=== PATIENT | female | born 1970 | race Caucasian/White ===

== ENCOUNTER 2019-11-08 11:25 | Emergency (ER) | payer MEDICAID ==
[~2019-11-08] VITALS: Ht 165.1 cm; Wt 64.9 kg
[2019-11-08 11:25] VITALS: BP_SYST 121
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
--- NOTE | 2019-11-08 11:55 | NUR ---
BROUGHT BACK TO BED #7 AND REPORT GIVEN TO AIDAN
--- NOTE | 2019-11-08 12:00 | NUR ---
OFFICER COLBY AT BEDSIDE TO SPEAK WITH PT.
--- NOTE | 2019-11-08 12:23 | NUR ---
DR MAHAN AT BEDSIDE FOR EVALUATION
[2019-11-08] MEDS ORDERED: KETOROLAC TROMETHAMINE 60 MG/2 ML VIAL IM ONE (12:30)
--- NOTE | 2019-11-08 13:00 | NUR ---
Medicated for pain per MD orders. Pt tolerated well, no adverse reaction
[2019-11-08 13:10] VITALS: BP_SYST 117
--- NOTE | 2019-11-08 13:14 | NUR ---
PATIENT DECLINED NURSING ASSESSMENT; PREPARATIONS TO DISCHARGE PER ERMD; ACI GIVEN AND PATIENT INDICATED FULL UNDERSTANDING; DISCHARGED AMBULATORY, IMPROVED
--- NOTE | 2019-11-08 13:17 | NUR ---
TORADOL INJECTION ADMINISTERED BY ER DIRECTOR
== END 2019-11-08 13:14 | disposition home or self-care (01) ==
LOC: SED 11:25 → EEVIPCON 11:25 → SED 13:14
DX: S13.4XXA Sprain of ligaments of cervical spine, initial encounter (principal); F17.290 Nicotine dependence, other tobacco product, uncomplicated; Y04.0XXA Assault by unarmed brawl or fight, initial encounter; Y93.89 Activity, other specified; Y92.89 Other specified places as the place of occurrence of the external cause; Y99.8 Other external cause status
CPT/HCPCS: 72040; 96372; 99283; J1885

== ENCOUNTER 2020-06-10 21:20 | Emergency (ER) | payer MEDICAID ==
[~2020-06-10] VITALS: Ht 165.1 cm; Wt 61.2 kg
[2020-06-10 21:22] VITALS: BP_SYST 122
[2020-06-10] MEDS ORDERED: ASPIRIN 81 MG TAB.CHEW PO ONE (21:45)
[2020-06-10] MEDS ORDERED: LORazepam 1 MG TABLET PO ONE (22:00)
[2020-06-10 22:15] LABS: BASOPHILS % (AUTO) 0.5 % (0.0-2.0); EOSINOPHILS % (AUTO) 0.9 % (0.0-4.0); HEMATOCRIT 35.4 % (36-48); HEMOGLOBIN 11.4 g/dL (12.0-16.0); LYMPHOCYTES # (AUTO) 1.5 K/uL (1.0-5.5); LYMPHOCYTES % (AUTO) 27.2 % (20.5-51.5); MEAN CORPUSCULAR HEMOGLOBIN 26 pg (27-31); MEAN CORPUSCULAR HGB CONC 32 % (32-36); MEAN CORPUSCULAR VOLUME 81 fL (79.0-98.0); MONOCYTES # (AUTO) 0.4 K/uL (0.0-1.0); MONOCYTES % (AUTO) 8.3 % (1.7-9.3); NEUTROPHILS # (AUTO) 3.4 K/uL (1.8-7.7); NEUTROPHILS % (AUTO) 63.1 % (40.0-70.0); PLATELET COUNT (AUTO) 195 K/uL (130-430); RED BLOOD CELL COUNT(AUTO) 4.37 MIL/uL (4.2-6.2); RED CELL DISTRIBUTION WIDTH 14.9 % (9.0-15.0); WHITE BLOOD COUNT (AUTO) 5.4 K/uL (4.8-10.8)
[2020-06-10 22:35] LABS: CALCIUM 8.9 mg/dL (8.4-11.0); CREATININE 0.71 mg/dL (0.55-1.30); POTASSIUM 3.3 mmol/L (3.5-5.1)
[2020-06-10 22:39] LABS: ALBUMIN 3.3 g/dL (3.4-4.8); TOTAL BILIRUBIN 0.3 mg/dL (0.0-1.0)
[2020-06-10] MEDS ORDERED: KETOROLAC TROMETHAMINE 60 MG/2 ML VIAL IM ONE (23:30)
[2020-06-10] MEDS ORDERED: ACETAMINOPHEN 500 MG TABLET PO ONE (23:30)
[2020-06-11] MEDS ORDERED: POTASSIUM CHLORIDE 20 MEQ TAB.PRT.SR PO ONE (01:30)
[2020-06-11 01:33] VITALS: BP_SYST 122
== END 2020-06-11 01:33 | disposition home or self-care (01) ==
LOC: SED 21:20
DX: R07.89 Other chest pain (principal); J45.909 Unspecified asthma, uncomplicated; E07.9 Disorder of thyroid, unspecified
CPT/HCPCS: 36415; 71045; 80053; 82550; 83880; 84484; 85025; 85379; 93005; 96372; 99285; J1885